=== PATIENT | female | born 1945 | race Caucasian/White ===

== ENCOUNTER 2019-08-29 10:50 | Day surgery (SDC) | payer MEDICARE ==
[2019-08-23 14:51] LABS: BASOPHILS # (AUTO) 0.1 X10'3 (0-0.2); BASOPHILS % (AUTO) 0.7 % (0-1); EOSINOPHILS # (AUTO) 0.1 X10'3 (0-0.9); LYMPHOCYTES # (AUTO) 0.8 X10'3 (1.1-4.8); LYMPHOCYTES % (AUTO) 10.1 % (21-51); MEAN CORPUSCULAR HEMOGLOBIN 33.7 PG (27.0-31.0); MEAN CORPUSCULAR VOLUME 99.2 FL (78-98); MEAN PLATELET VOLUME 7.4 FL (7.4-10.4); MONOCYTES # (AUTO) 0.7 X10'3 (0-0.9); MONOCYTES % (AUTO) 9.6 % (2-12); NEUTROPHILS # (AUTO) 5.9 X10'3 (1.8-7.7); NEUTROPHILS % (AUTO) 78.6 % (42-75); PRE OP HEMOGLOBIN 13.3 g/dL (12.0-16.0); PRE OP PLATELET COUNT 236 X10'3 (140-440); RED BLOOD COUNT 3.93 X10'6 (4.20-5.60); RED CELL DISTRIBUTION WIDTH 14.8 % (11.5-14.5)
[2019-08-23 15:08] LABS: ALBUMIN 4.1 G/DL (3.4-5.0); ALBUMIN/GLOBULIN RATIO 1.1 (1.1-1.5); ALKALINE PHOSPHATASE 151 IU/L (46-116); BLOOD UREA NITROGEN 28 MG/DL (7-18); BUN/CREATININE RATIO 8.6 (6.6-38.0); CALCIUM 9.8 MG/DL (8.5-10.1); CHLORIDE 104 MMOL/L (99-107); CREATININE 3.26 MG/DL (0.40-0.90); PRE OP ALT 47 U/L (30-65); PRE OP ANION GAP 9 (8-16); PRE OP AST 31 U/L (10-37); PRE OP BILIRUB, TOTAL 0.5 MG/DL (0.0-1.0); PRE OP GLUCOSE 91 MG/DL (70-104); PRE OP POTASSIUM 4.2 MMOL/L (3.4-5.1); PRE OP SODIUM 141 MMOL/L (135-145); TOTAL CARBON DIOXIDE 27.8 MMOL/L (24-32); TOTAL PROTEIN 7.9 G/DL (6.4-8.2); eGFR 14 ML/MIN
[~2019-08-29] VITALS: Ht 172.7 cm; Wt 43.3 kg
[~2019-08-29 10:50] MED LIST: ALEN70TA60 PO; AMOX-419 PO; ATOR40TA7 PO; BIOT10004 PO; CALC667C2 PO; CHOL10002 PO; CLOP75TA35 PO; CRAN500C4 PO; DIALYVITE PO; FISH OIL PO; FOLI1TAB16 PO; FURO40TA4 PO; LIDOcaine 0.5% (5mg/ml) 50ml vial ONE; NYST50002 PO; PANT-47 PO; SERT100T PO; TRAZ-219 PO; WARF1TAB9 PO; cefazolin/dext.iso 2gm/100 ML IV ONE; famotidine 20mg tablet PO ONE; ringers solution, lacted 1,000 ML IV SCH
[2019-08-29 11:00] VITALS: BP 66/54
[2019-08-29] MEDS ORDERED: BUPIVAcaine/PF 2.5mg/ml (0.25%) 10ml vial ONE (12:44)
[2019-08-29] MEDS ORDERED: ringers solution, lacted 1,000 ML IV SCH (12:54)
[2019-08-29] MEDS ORDERED: morphine 4 MG/ML inj SYRINge IV PRN ×2 (12:55)
[2019-08-29] MEDS ORDERED: fentaNYL/PF 50MCG/1 ML 2ML syringe IV PRN ×2 (12:55)
[2019-08-29] MEDS ORDERED: ondansetron/PF 4mg/2ml inj IV PRN (12:55)
[2019-08-29] MEDS ORDERED: labetalol 20mg/4ml (5mg/ml) syringe IV PRN (12:55)
[2019-08-29] MEDS ORDERED: enalaprilat dihydrate 2.5mg/2ml vial IV PRN (12:55)
[2019-08-29] MEDS ORDERED: triamcinolone acetonide 40mg/ml inj ONE (12:58)
[2019-08-29] MEDS ORDERED: midazolam 2 mg/2 ml injection ONE (12:59)
[2019-08-29] MEDS ORDERED: LIDOcaine 1% W/epiNEPHrine 1:200,000 10ml vial ONE (12:59)
[2019-08-29] MEDS ORDERED: fentaNYL/PF 50MCG/1 ML 2ML syringe ONE (12:59)
[2019-08-29] MEDS ORDERED: LIDOcaine 1% 30ml preserv. free vial ONE (13:04)
[2019-08-29] MEDS ORDERED: propofol 10mg/ml 20ml vial IV ONE (13:15)
[2019-08-29 13:43] VITALS: BP 98/53
--- NOTE | 2019-08-29 13:43 | NUR ---
Received from OR via , accompanied by Anesthesiologist DR WILLIAMSON and report given by Anesthesiolgist. AWAKENS TO VOICE. VITALS STABLE. DRESSING DI. TOPHER PAIN. FINGERS WARM AND PINK.
[2019-08-29 13:53] VITALS: BP 100/54
[2019-08-29 14:03] VITALS: BP 101/61
[2019-08-29 14:13] VITALS: BP 112/66
--- NOTE | 2019-08-29 14:23 | NUR ---
AWAKE AND ORIENTED.VITALS STABLE. DRESSING DI. TOPHER PAIN. HOME WITH HER SPOUSE AT THIS TIME.
== END 2019-08-29 14:23 | disposition home or self-care (01) ==
LOC: PAS 10:50
PROVIDERS: ATTEND Orthopaedic Surgery Hand Surgery
DX: G56.01 Carpal tunnel syndrome, right upper limb (principal); M18.0 Bilateral primary osteoarthritis of first carpometacarpal joints; N18.5 Chronic kidney disease, stage 5; J44.9 Chronic obstructive pulmonary disease, unspecified; F32.9 Major depressive disorder, single episode, unspecified; Z93.2 Ileostomy status; Z88.1 Allergy status to other antibiotic agents; Z88.2 Allergy status to sulfonamides; Z88.5 Allergy status to narcotic agent; Z88.8 Allergy status to other drugs, medicaments and biological substances; Z90.710 Acquired absence of both cervix and uterus; Z98.890 Other specified postprocedural states; Z87.891 Personal history of nicotine dependence; Z72.89 Other problems related to lifestyle; Z90.49 Acquired absence of other specified parts of digestive tract; Z90.5 Acquired absence of kidney
CPT/HCPCS: 20600; 36415; 64721; 80053; 82948; 85025; J2001; J2250; J2704; J3010; J3301; J3490; A4215; J7120

== ENCOUNTER 2020-02-13 09:10 | Inpatient (IN) | payer MEDICARE ==
[2020-02-09 15:02] LABS: BASOPHILS % (AUTO) 0.6 % (0-1); EOSINOPHILS # (AUTO) 0.1 X10'3 (0-0.9); LYMPHOCYTES # (AUTO) 0.7 X10'3 (1.1-4.8); LYMPHOCYTES % (AUTO) 9.2 % (21-51); MEAN CORPUSCULAR HEMOGLOBIN 31.6 PG (27.0-31.0); MEAN CORPUSCULAR HGB CONC 33.5 g/dL (33.0-36.5); MEAN CORPUSCULAR VOLUME 94.3 FL (78-98); MEAN PLATELET VOLUME 7.5 FL (7.4-10.4); MONOCYTES # (AUTO) 0.8 X10'3 (0-0.9); MONOCYTES % (AUTO) 10.5 % (2-12); NEUTROPHILS # (AUTO) 5.8 X10'3 (1.8-7.7); NEUTROPHILS % (AUTO) 78.7 % (42-75); PRE OP PLATELET COUNT 213 X10'3 (140-440); RED BLOOD COUNT 3.81 X10'6 (4.20-5.60); RED CELL DISTRIBUTION WIDTH 15.8 % (11.5-14.5)
[2020-02-09 15:13] LABS: PRE OP PROTIME 15.3 SECONDS (9.0-12.0)
[2020-02-09 15:17] LABS: ALBUMIN 3.5 G/DL (3.4-5.0); ALBUMIN/GLOBULIN RATIO 0.9 (1.1-1.5); ALKALINE PHOSPHATASE 147 IU/L (46-116); BLOOD UREA NITROGEN 26 MG/DL (7-18); BUN/CREATININE RATIO 7.5 (6.6-38.0); CALCIUM 9.5 MG/DL (8.5-10.1); CHLORIDE 104 MMOL/L (99-107); CREATININE 3.47 MG/DL (0.40-0.90); PRE OP ALT 18 U/L (30-65); PRE OP ANION GAP 7 (8-16); PRE OP AST 24 U/L (10-37); PRE OP BILIRUB, TOTAL 0.3 MG/DL (0.0-1.0); PRE OP GLUCOSE 101 MG/DL (70-104); PRE OP POTASSIUM 4.5 MMOL/L (3.4-5.1); PRE OP SODIUM 141 MMOL/L (135-145); TOTAL CARBON DIOXIDE 29.8 MMOL/L (24-32); TOTAL PROTEIN 7.5 G/DL (6.4-8.2); eGFR 13 ML/MIN
[2020-02-09 15:26] LABS: PRE OP INR 1.5 INR
[2020-02-13] VITALS (17 sets, daily range): BP systolic 88–142; BP diastolic 43–72
[~2020-02-13] VITALS: Ht 172.7 cm; Wt 41.3 kg
[~2020-02-13 09:10] MED LIST changes: -DIALYVITE PO; -FISH OIL PO; +FOLI1TAB34 PO; -LIDOcaine 0.5% (5mg/ml) 50ml vial ONE; +NORMAL SALINE IV ONE; +NYST1000 PO; -NYST50002 PO; +OMEG1CAP46 PO; +OXYC5CAP19 PO; +TRANEXAMIC ACID IV ONE; -TRAZ-219 PO; +TRAZ-256 PO; -cefazolin/dext.iso 2gm/100 ML IV ONE; +cefazolin/dext.iso 2gm/100ml 100 ML IV ONE; +normal saline 1000ml 1,000 ML IV SCH; +vancomycin/NS 1 GM ADD-VANTAGE 250 ML X 1 DOSE IV ONE
[2020-02-13 11:03] LABS: BASOPHILS % (AUTO) 1.1 % (0-1); EOSINOPHILS # (AUTO) 0.2 X10'3 (0-0.9); EOSINOPHILS % (AUTO) 3.4 % (0-6); LYMPHOCYTES # (AUTO) 0.7 X10'3 (1.1-4.8); LYMPHOCYTES % (AUTO) 15.8 % (21-51); MEAN CORPUSCULAR HEMOGLOBIN 31.5 PG (27.0-31.0); MEAN CORPUSCULAR HGB CONC 33.5 g/dL (33.0-36.5); MEAN CORPUSCULAR VOLUME 94.1 FL (78-98); MEAN PLATELET VOLUME 7.4 FL (7.4-10.4); MONOCYTES # (AUTO) 0.6 X10'3 (0-0.9); MONOCYTES % (AUTO) 12.8 % (2-12); NEUTROPHILS # (AUTO) 3.1 X10'3 (1.8-7.7); NEUTROPHILS % (AUTO) 66.9 % (42-75); PRE OP HEMATOCRIT 34.3 % (35.0-45.0); PRE OP HEMOGLOBIN 11.5 g/dL (12.0-16.0); PRE OP PLATELET COUNT 202 X10'3 (140-440); RED BLOOD COUNT 3.64 X10'6 (4.20-5.60); RED CELL DISTRIBUTION WIDTH 15.4 % (11.5-14.5)
[2020-02-13 11:07] LABS: ALBUMIN 3.3 G/DL (3.4-5.0); ALBUMIN/GLOBULIN RATIO 0.8 (1.1-1.5); ALKALINE PHOSPHATASE 137 IU/L (46-116); BLOOD UREA NITROGEN 11 MG/DL (7-18); BUN/CREATININE RATIO 4.9 (6.6-38.0); CALCIUM 8.7 MG/DL (8.5-10.1); CHLORIDE 103 MMOL/L (99-107); CREATININE 2.24 MG/DL (0.40-0.90); PRE OP ALT 20 U/L (30-65); PRE OP ANION GAP 5 (8-16); PRE OP AST 26 U/L (10-37); PRE OP BILIRUB, TOTAL 0.4 MG/DL (0.0-1.0); PRE OP GLUCOSE 94 MG/DL (70-104); PRE OP POTASSIUM 4.1 MMOL/L (3.4-5.1); PRE OP SODIUM 137 MMOL/L (135-145); TOTAL CARBON DIOXIDE 29.5 MMOL/L (24-32); TOTAL PROTEIN 7.2 G/DL (6.4-8.2); eGFR 21 ML/MIN
[2020-02-13 11:47] LABS: PRE OP INR 1.1 INR; PRE OP PROTIME 10.9 SECONDS (9.0-12.0)
[2020-02-13] MEDS ORDERED: ROPIVAcaine 0.5% (5mg/ml) 30ml vial ONE ×2 (13:08→15:04)
[2020-02-13] MEDS ORDERED: sevoflurane 250ml liquid IH ONE (13:36)
[2020-02-13] MEDS ORDERED: fentaNYL/PF 50MCG/1 ML 2ML syringe ONE (13:38)
[2020-02-13] MEDS ORDERED: propofol inj 20 ML IV ONE (13:39)
[2020-02-13] MEDS ORDERED: midazolam 2 mg/2 ml injection ONE ×2 (13:39)
[2020-02-13] MEDS ORDERED: ePHEDrine 50MG/ML INJ. ONE (14:23)
[2020-02-13] MEDS ORDERED: ringers solution, lacted 1,000 ML IV SCH (15:28)
[2020-02-13] MEDS ORDERED: ROPIVAcaine 0.2%/PF PUMP/bolus 550 ML INTERSCALE SCH (15:28)
[2020-02-13] MEDS ORDERED: ROPIVAcaine 0.2% (10 MG/5 ML) BOLUS INJECTION INTERSCALE PRN (15:30)
[2020-02-13] MEDS ORDERED: morphine 2 MG/ML inj. syringe IV PRN (15:30)
[2020-02-13] MEDS ORDERED: ondansetron/PF 4mg/2ml inj IV PRN ×2 (15:30→16:30)
[2020-02-13] MEDS ORDERED: morphine 4 MG/ML inj SYRINge IV PRN (15:30)
[2020-02-13] MEDS ORDERED: meperidine/PF 25mg/ml syringe IV PRN ×3 (15:30)
[2020-02-13] MEDS ORDERED: proCHLORperazine 10 MG/2 ml inj IV PRN (15:30)
--- NOTE | 2020-02-13 16:23 | NUR ---
RECIEVED FROM OR VIA BED WITH OHTF ACCOMPANIED BY DR WOODWARD ANESTHESIA, REPORT GIVEN.PT DROWSY BUT AWAKENS. 22 GAUGE PIV LEFT FOOT PATENT AND RUNNING NS AT 40 ML/HR. NO C/O PAIN AT THIS TIME. ACTICOAT AND ISLAND DRESSING CDI WITH SHOULDER WRAP AND POWDER PACK IN PLACE. ON Q CATHETER IN PLACE. SKIN PINK AND WARM WITH GOOD PULSES. VSS. ABD SOFT. Addendum: 02/13/20 at 1640 by Ynes Smith RN Amended: Links added.
[2020-02-13] MEDS ORDERED: acetaminophen 325mg tablet PO PRN (16:30)
[2020-02-13] MEDS ORDERED: bisacodyl 10mg suppository rectal RC PRN (16:30)
[2020-02-13] MEDS ORDERED: diphenhydrAMINE 25mg capsule PO PRN ×2 (16:30)
[2020-02-13] MEDS ORDERED: non-formulary drug (Alendronate Sodium* (Fosamax*) 1 TABLET) PO SCH (16:30)
[2020-02-13] MEDS ORDERED: oxyCODONE IR 5mg (immed. release) tablet PO PRN ×2 (16:30)
[2020-02-13] MEDS ORDERED: magnesium hydroxide 30ml (MOM) UD suspension PO PRN (16:30)
[2020-02-13] MEDS ORDERED: HYDROmorphone 1 mg/ml syringe IV PRN (16:30)
[2020-02-13] MEDS ORDERED: HYDROmorphone inj. 0.5 MG/0.5 ML DISP.SYRIN IV PRN (16:30)
--- NOTE | 2020-02-13 17:23 | NUR ---
TRANSFERRED VIA BED WITH OHTF, BED DOWN, RAILS UP, ACCOMPANIED BY MYSELF, REPORT GIVEN.PT AWAKE AND ALERT. 22 GAUGE PIV LEFT FOOT PATENT AND RUNNING NS AT 40 ML/HR. NO C/O PAIN AT THIS TIME. ACTICOAT AND ISLAND DRESSING CDI WITH SHOULDER WRAP AND POWDER PACK IN PLACE. ON Q CATHETER IN PLACE. SKIN PINK AND WARM WITH GOOD PULSES. VSS. ABD SOFT.ILIOSTOMY BAG DRAINING.
--- NOTE | 2020-02-13 18:45 | NUR ---
called dr. wong advised to give lovenox and coumadin tonight and hold am dose of augmentin.
[2020-02-13] MEDS ORDERED: NORMAL SALINE IV ONE (19:30)
[2020-02-13] MEDS ORDERED: TRANEXAMIC ACID IV ONE (19:30)
[2020-02-13] MEDS ORDERED: vancomycin/NS 1 GM ADD-VANTAGE 250 ML IV SCH (20:00)
[2020-02-13] MEDS ORDERED: enoxaparin 30mg/0.3ml syringe SQ SCH (20:00)
[2020-02-13] MEDS: furosemide 40mg tablet PO SCH (20:42)
[2020-02-13] MEDS: potassium cl 20mEq in 1/2 NS 1,000 ML IV SCH (20:46)
[2020-02-13] MEDS ORDERED: warfarin 5mg tablet PO SCH (21:00)
[2020-02-13] MEDS ORDERED: warfarin 1mg tablet PO SCH (21:00)
[2020-02-13] MEDS ORDERED: warfarin 3mg tablet PO SCH (21:00)
[2020-02-13] MEDS ORDERED: atorvastatin 20mg tablet PO SCH (21:00)
[2020-02-13] MEDS ORDERED: sennosides 8.6mg tablet PO SCH (21:00)
[2020-02-13] MEDS ORDERED: traZODone 50mg tablet PO SCH (21:00)
[2020-02-13] MEDS: calcium acetate 667mg (PhosLO) capsule PO SCH (21:00)
[2020-02-13] MEDS: ceFAZolin/D5W- 1GM premix 50 ML IV SCH (23:20)
[2020-02-14] MEDS: potassium cl 20mEq in 1/2 NS 1,000 ML IV SCH ×2 (00:28→08:28)
[2020-02-14 02:00] VITALS: BP 119/48
[2020-02-14 06:02] LABS: ANION GAP 12 (8-16); CHLORIDE 105 MMOL/L (99-107); POTASSIUM 4.3 MMOL/L (3.5-5.1); SODIUM 138 MMOL/L (135-145); TOTAL CARBON DIOXIDE 21.2 MMOL/L (24-32)
[2020-02-14 06:03] LABS: BASOPHILS % (AUTO) 0.4 % (0-1); EOSINOPHILS % (AUTO) 0 % (0-6); HEMATOCRIT 27.6 % (35.0-45.0); HEMOGLOBIN 9.6 g/dl (12.0-16.0); LYMPHOCYTES # (AUTO) 0.2 X10'3 (1.1-4.8); MEAN CORPUSCULAR HEMOGLOBIN 32.6 PG (27.0-31.0); MEAN CORPUSCULAR HGB CONC 34.6 g/dL (33.0-36.5); MEAN PLATELET VOLUME 7.4 FL (7.4-10.4); MONOCYTES # (AUTO) 0.8 X10'3 (0-0.9); MONOCYTES % (AUTO) 7.2 % (2-12); NEUTROPHILS # (AUTO) 9.9 X10'3 (1.8-7.7); NEUTROPHILS % (AUTO) 90.4 % (42-75); PLATELET COUNT 187 X10'3 (140-440); RED BLOOD COUNT 2.93 X10'6 (4.20-5.60); RED CELL DISTRIBUTION WIDTH 15.7 % (11.5-14.5)
--- NOTE | 2020-02-14 06:43 | NUR ---
Patient in room [facility] 4016. I have received report from BRITTNEE ROBINS and had the opportunity to ask questions and assume patient care.
[2020-02-14] MEDS ORDERED: oxyCODONE/APAP 10/325mg tablet PO PRN ×2 (06:50)
[2020-02-14 07:13] VITALS: BP 120/50
[2020-02-14] MEDS ORDERED: clopidogrel 75mg tablet PO SCH (08:00)
[2020-02-14] MEDS ORDERED: sertraline 50mg tablet PO SCH (08:00)
[2020-02-14] MEDS ORDERED: BIOTIN PO SCH (08:00)
[2020-02-14] MEDS ORDERED: vitamin D (cholecalciferol) 1,000 unit tablet PO SCH (08:00)
[2020-02-14] MEDS ORDERED: pantoprazole 40mg Tablet.DR PO SCH (08:00)
[2020-02-14] MEDS ORDERED: folic acid 1mg tablet PO SCH (08:00)
[2020-02-14] MEDS ORDERED: enoxaparin 30mg/0.3ml syringe SQ SCH (08:00)
[2020-02-14] MEDS ORDERED: amox tr/potassium clavulanate 500mg/125mg TAB PO SCH (08:00)
[2020-02-14] MEDS ORDERED: non-formulary drug (Cranberry Extract (Cranberry) 1 TAB) PO SCH (08:00)
[2020-02-14] MEDS: ceFAZolin/D5W- 1GM premix 50 ML IV SCH (08:04)
[2020-02-14] MEDS: calcium acetate 667mg (PhosLO) capsule PO SCH ×2 (08:04→13:01)
[2020-02-14] MEDS: furosemide 40mg tablet PO SCH (08:05)
[2020-02-14] MEDS ORDERED: ONQPUMP ADDCANAL (08:45)
[2020-02-14 10:18] VITALS: BP 102/43
--- NOTE | 2020-02-14 11:43 | NUR ---
PATIENT IS ALERT AND ORIENTED. DISCUSSED WITH PATIENT DISCHARGE INSTRUCTIONS AND USE OF AND HOW TO REMOVE ON-Q BALL PUMP. HANDOUT GIVEN TO PATIENT WELL. PATIENT VERBALIZES UNDERSTANDING OF ALL TEACHING WITH NO QUESTIONS AND SHE STATES " IF I HAVE ANY QUESTIONS LATER I WILL CALL." X2 ISLAND DRESSING GIVEN TO PATIENT INSTRUCTED AND EDUCATED ON DRESSING CARE. PER DISCHARGE INSTRUCTION FROM DR SANCHEZ PATIENT IS INSTRUCTED SHE CAN LEAVE BATCH TRUCKER OR PLACE DRESSING ON INCISION. PATIENT IS READY FOR DC AND AWAITING FOR PHYSICAL THERAPY TREATMENT PRIOR TO DC REQUESTED BY DR. SANCHEZ. PHYSICAL THERAPY IS NOW AT BEDSIDE.
--- NOTE | 2020-02-14 12:12 | NUR ---
Malnutrition Consult: Pt s/p L shoulder fracture repair. PO 0-25% first regular meal post-op. BMI 13.8 w/ 41.3kg standing scale wt. Pt has had 5% UBW loss past 5 months since prior admit scaled wt 43kg August 2019 though also receiving HD and wt to fluctuate given fluid status. Pt seen by RD and reports lower appetite usually s/p HD and following recent shoulder injury past 2-3 months but had good appetite prior. Pt unable to provide specific wt hx and does not have visible signs of severe muscle/fat wasting; likely maintains stable low wt and small stature. RD provided verbal high protein ed given pt healing/HD needs and encouraged PO intake; pt reports has "getting the hull chops ready" at home and declines any nutrition concerns of further information. Pending discharge today per EMR and pt during RD visit. At this time pt does not meet minimum malnutrition criteria. Will continue to monitor. Addendum: 02/14/20 at [address] De La Garza RD Amended: Links added.
--- NOTE | 2020-02-14 13:05 | NUR ---
Physical therapy treatment completed. Patient is now sitting in wheelchair at bedside eating lunch. Awaiting arrival of patient's spouse for transportation home.
--- NOTE | 2020-02-14 13:39 | NUR ---
IV to left foot removed. Canula intact.
--- NOTE | 2020-02-14 14:08 | NUR ---
Patient dc'd home with all personal belongings. Patient accompanied down to lobby where spouse waiting outside for transportation. Patient was alert and oriented and no complaints at time of dc.
--- NOTE | 2020-02-15 14:10 | NUR ---
Case Management DC follow up: spoke to pt via telephone. Reports having "difficult issues". states pain pump was already empty, did not last the 2-3 days. states it was set on 14 and did not realize it. removed, put bandaid on insert site. administering to pt 10mg of Oxycodone Q 4 PRN & 3000 mg tylenol daily. states pt c/o hearing "constant betts fire" in her head getting worse. pt has been asleep, needs to rouse pt to keep her awake, unable to feed self. Denies pt experienced CP, emergent general pain, SOB, respiratory distress, NV, dizziness, syncope episodes, abd pain. Advised pt to contact Dr Leslie office immediately and relay symptoms. Acknowledges importance of scheduling/keeping appointments w/PCP [facility]/specialists/[facility]. Educated pt/spouse on importance of following Dr hubbard with all Rx. Addendum: 02/15/20 at 1428 by Zoë Harris RN Called pt back, pt spouse waiting for call back from Dr Leslie. Spoke to answering service, said Dr garcia for 2 weeks, but they will contact him and get back to pt. Advised pt spouse to call PCP as well, may be coming back into the hospital.
[2020-02-15] MEDS ORDERED: acetaminophen 325mg tablet PO PRN (16:30)
== END 2020-02-14 13:50 | disposition home or self-care (01) | DRG 483 ==
LOC: UNDOADMIN 09:10 → PAS IN 09:10 → EDSTATUS 12:00 → PAS IN 16:23 → ORTHO 4S 17:28
PROVIDERS: ADMIT Orthopaedic Surgery; ATTEND Orthopaedic Surgery
PROC: 0LS40ZZ Reposition Left Upper Arm Tendon, Open Approach (ICD-10-PCS; 2020-02-13)
PROC: 3E0T3BZ Introduction of Anesthetic Agent into Peripheral Nerves and Plexi, Percutaneous Approach (ICD-10-PCS; 2020-02-13)
PROC: 0RRK00Z Replacement of Left Shoulder Joint with Reverse Ball and Socket Synthetic Substitute, Open Approach (ICD-10-PCS; principal; 2020-02-13 13:36)
DX: S42.232A 3-part fracture of surgical neck of left humerus, initial encounter for closed fracture (principal); D62 Acute posthemorrhagic anemia; M19.012 Primary osteoarthritis, left shoulder; N19 Unspecified kidney failure; K21.9 Gastro-esophageal reflux disease without esophagitis; N25.0 Renal osteodystrophy; F32.9 Major depressive disorder, single episode, unspecified; Z85.3 Personal history of malignant neoplasm of breast; Z86.2 Personal history of diseases of the blood and blood-forming organs and certain disorders involving the immune mechanism; Z87.11 Personal history of peptic ulcer disease; Z99.2 Dependence on renal dialysis; Z79.899 Other long term (current) drug therapy
CPT/HCPCS: 36415; 71046; 80051; 80053; 85025; 85610; 85730; 87081; 97110; 97161; 97530; A4565; A4618; A7000; C1776; G0378; J0690; J1170; J1650; J2250; J2704; J2795; J3010; J3370; J3480; J7030; J7120; Q0163

== ENCOUNTER 2020-04-04 17:08 | Emergency (ER) | payer MEDICARE ==
[~2020-04-04] VITALS: Ht 172.7 cm; Wt 39.2 kg
[~2020-04-04 17:08] MED LIST changes: -NORMAL SALINE IV ONE; +ONQPUMP ADDCANAL; -TRANEXAMIC ACID IV ONE; -cefazolin/dext.iso 2gm/100ml 100 ML IV ONE; -famotidine 20mg tablet PO ONE; -normal saline 1000ml 1,000 ML IV SCH; -ringers solution, lacted 1,000 ML IV SCH; -vancomycin/NS 1 GM ADD-VANTAGE 250 ML X 1 DOSE IV ONE
[2020-04-04] MEDS ORDERED: acetaminophen 325mg tablet PO ONE (17:35)
[2020-04-04 18:09] VITALS: BP 120/63
== END 2020-04-04 18:12 | disposition home or self-care (01) ==
LOC: ER 17:09
DX: M79.675 Pain in left toe(s) (principal); M79.89 Other specified soft tissue disorders; Z85.038 Personal history of other malignant neoplasm of large intestine; Z98.890 Other specified postprocedural states; Z88.1 Allergy status to other antibiotic agents; Z88.5 Allergy status to narcotic agent; Z88.8 Allergy status to other drugs, medicaments and biological substances; Z79.2 Long term (current) use of antibiotics; Z79.01 Long term (current) use of anticoagulants; Z79.899 Other long term (current) drug therapy
CPT/HCPCS: 73660; 99284